=== PATIENT | male | born 1990 | race Caucasian/White ===

== ENCOUNTER 2017-04-12 17:08 | Emergency (ER) | payer BC ==
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
[~2017-04-12 17:08] MED LIST: NO MEDICATIONS; TYLENOL/CODEINE1 TA1 PO; VOLTAREN75 MG PO
== END 2017-04-12 18:56 | disposition home or self-care (01) ==
LOC: SED 17:08
DX: S99.912A Unspecified injury of left ankle, initial encounter (principal); Z23 Encounter for immunization; W22.8XXA Striking against or struck by other objects, initial encounter; Y92.009 Unspecified place in unspecified non-institutional (private) residence as the place of occurrence of the external cause
CPT/HCPCS: 29540; 73610; 90471; 90715; 99283